=== PATIENT | female | born 1985 | race Caucasian/White ===

== ENCOUNTER 2023-02-02 04:45 | Emergency (ER) | payer BC ==
[~2023-02-02] VITALS: Ht 165.1 cm; Wt 74.8 kg
[2023-02-02 05:20] VITALS: BP 127/86; TEMP 98.8; O2SAT 97
== END 2023-02-02 05:20 | disposition home or self-care (01) ==
LOC: ER 04:49
DX: M54.12 Radiculopathy, cervical region (principal); M62.838 Other muscle spasm; Z60.2 Problems related to living alone